=== PATIENT | female | born 1955 | race Caucasian/White ===

== ENCOUNTER 2025-05-30 08:37 | Day surgery (SDC) | payer OTHER, BC ==
[2025-05-29 09:43] VITALS: BMI 20.2
[2025-05-30] MEDS ORDERED: CYCLOPENTOLATE HCL 1% OPHTH SOLN 2 ML BOTTLE ONE (08:53)
[2025-05-30] MEDS ORDERED: TROPICAMIDE 1% 3 ML EYE DROPS ONE (08:53)
[2025-05-30] MEDS ORDERED: KETOROLAC TROMETHAMINE 0.5% EYE DROP 1 DROP DROPS ONE (08:53)
[2025-05-30] MEDS ORDERED: PHENYLEPHRINE 2.5% OPTHALMIC DROP 2ML BOTTLE ONE (08:53)
[2025-05-30] MEDS ORDERED: OFLOXACIN 0.3% OPHTHALMIC SOLUTION 5 ML BOTTLE ONE (08:53)
[2025-05-30] MEDS ORDERED: ACETAMINOPHEN 325 MG TABLET (FP) PO PRN (09:10)
[2025-05-30] MEDS: PHENYLEPHRINE 2.5% OPHTH SOLN 15 ML BOTTLE OD SCH (09:15)
[2025-05-30] MEDS: CYCLOPENTOLATE HCL 1% OPHTH SOLN 2 ML BOTTLE OD SCH (09:15)
[2025-05-30] MEDS: KETOROLAC TROMETHAMINE 0.5% EYE DROP 1 DROP DROPS OD SCH (09:15)
[2025-05-30] MEDS: OFLOXACIN 0.3% OPHTHALMIC SOLUTION 5 ML BOTTLE OD SCH (09:15)
[2025-05-30] MEDS: TROPICAMIDE 1% OPHTH SOLN 15 ML BOTTLE OD SCH (09:15)
[2025-05-30] MEDS ORDERED: MIDAZOLAM HCL 2 MG/2 ML SINGLE DOSE VIAL ONE (10:50)
[2025-05-30 11:54] VITALS: RESP 16; TEMP 97.2
[2025-05-30 12:11] VITALS: BP 112/70; PULSE 76
== END 2025-05-30 12:05 | disposition home or self-care (01) ==
LOC: FASU 08:37
PROVIDERS: ATTEND Ophthalmology
PROC: 08RJ3JZ Replacement of Right Lens with Synthetic Substitute, Percutaneous Approach (ICD-10-PCS; principal; 2025-05-30 11:02)
DX: H25.89 Other age-related cataract (principal)
CPT/HCPCS: 66984; V2632